=== PATIENT | female | born 1990 | race Two or more races ===

== ENCOUNTER 2017-08-30 20:45 | Emergency (ER) | payer MEDICAID ==
[~2017-08-30] VITALS: Ht 175.3 cm; Wt 102.4 kg
[~2017-08-30 20:45] MED LIST: IBUP-1986 PO; NITR100C6 PO; NO HOME MEDS
[2017-08-30] MEDS ORDERED: IBUP-1986 PO (22:52)
[2017-08-30 23:03] VITALS: BP 132/88
== END 2017-08-30 23:05 | disposition home or self-care (01) ==
LOC: ER 20:46
DX: M26.621 Arthralgia of right temporomandibular joint (principal); J45.909 Unspecified asthma, uncomplicated; Z90.49 Acquired absence of other specified parts of digestive tract; Z90.710 Acquired absence of both cervix and uterus
CPT/HCPCS: 99282